=== PATIENT | male | born 1995 | race Caucasian/White ===

== ENCOUNTER 2021-03-29 10:06 | Emergency (ER) | payer SELFPAY ==
[2021-03-29 10:30] LABS: Urine Blood Negative (Negative); Urine Glucose Negative (Negative); Urine Protein Negative (Negative); Urine Specific Gravity 1.025 (1.005-1.030)
[2021-03-29 10:47] LABS: Absolute Lymphocytes (CBC) 1.6 K/uL (0.7-4.9); Basophils % 0.6 % (0-1.3); Hematocrit 45.2 % (39.6-49.0); Lymphocytes % 15.4 % (15.3-44.8); RBC Red Blood Cell Count 5.44 M/uL (4.33-5.43)
[2021-03-29 11:00] LABS: Protime INR 1.01
[2021-03-29 11:23] LABS: Barbiturates NEGATIVE (NEGATIVE); Benzodiazepines NEGATIVE (NEGATIVE); Cocaine NEGATIVE (NEGATIVE); METHAMPHETAM NEGATIVE (NEGATIVE); Methadone NEGATIVE (NEGATIVE); Opiates NEGATIVE (NEGATIVE); Phencyclidine NEGATIVE (NEGATIVE); THC Cannibis POSITIVE (NEGATIVE)
[2021-03-29 11:23] LABS: ALT/SGPT 44 U/L (12-78); AST/SGOT 20 U/L (15-37); Albumin 4.3 g/dL (3.4-5.0); Alkaline Phosphatase 57 U/L (45-117); BUN Blood Urea Nitrogen 17 mg/dL (7-18); Bicarbonate 25 mmol/L (21-32); Bilirubin Direct 0.3 mg/dL (0-0.2); Bilirubin Total 0.9 mg/dL (0.2-1.0); Glucose Level 114 mg/dL (74-106); Protein, Total 7.7 g/dL (6.4-8.2); Sodium Level 139 mmol/L (136-145)
--- NOTE | 2021-03-29 15:51 | ER ---
Nurse's Notes [facility] Name: Nik Miller Age: 26 yrs Sex: Male : 1995 Arrival Date: 03/29/2021 Time: 10:06 Bed 16 Private MD: Diagnosis: Suicidal ideations;Suicide attempt-Overdose Presentation: 03/29 10:19 Chief complaint: Patient states: "I took 2 handfuls of pills between the Tramadol and a jd3 Benzo today as an attempt to kill myself. I was going to go to the beach and hopefully just fall asleep, but I saw a picture of my kids and I decided to come here instead.". Coronavirus screen: At this time, the client does not indicate any symptoms associated with coronavirus-19. Ebola Screen: Patient negative for fever greater than or equal to 101.5 degrees Fahrenheit, and additional compatible Ebola Virus Disease symptoms. Initial Sepsis Screen: Does the patient meet any 2 criteria? No. Patient's initial sepsis screen is negative. Does the patient have a suspected source of infection? No. Patient's initial sepsis screen is negative. Risk Assessment: Do you want to hurt yourself or someone else? Patient reports desire/thoughts of hurting themselves or someone else. Provider notified. Onset of symptoms was March 29, 2021. 10:19 Method Of Arrival: Ambulatory jd3 10:19 Acuity: ANDREINA 2 jd3 10:25 Note poison control called/ recommendation: observation for 6 hours post ingestion, tox jd3 work up, EKG, and supportive care as needed. watch for respiratory depression and protect airway as needed. case # [id number]. Historical: - Allergies: 10:23 No Known Allergies; jd3 - Home Meds: 10:23 Lamictal Oral [Active]; jd3 - PMHx: 10:23 Bipolar disorder; jd3 - PSHx: 10:23 None; jd3 - Immunization history:: Adult Immunizations up to date. - Social history:: Smoking status: Patient reports the use of cigarette tobacco products, denies chronic smoking, but will smoke occasionally, Reported history of juuling and/or vaping. Patient uses alcohol, occasionally. street drugs, marijuana. - Family history:: not pertinent. - Hospitalizations: : No recent hospitalization is reported. Screenin:15 Abuse screen: Denies threats or abuse. Denies injuries from another. Nutritional jl7 screening: No deficits noted. Tuberculosis screening: No symptoms or risk factors identified. Fall Risk IV access (20 points). Total Ryan Fall Scale indicates No Risk (0-24 pts). Assessment: 10:15 Reassessment: Isa Metzger, pt's gerardoance, . jl7 10:15 General: Appears in no apparent distress. uncomfortable, Behavior is cooperative, jl7 crying. Pain: Denies pain. Neuro: Level of Consciousness is awake, alert, obeys commands, Oriented to person, place, time, situation. Cardiovascular: Patient's skin is warm and dry. Respiratory: Airway is patent Respiratory effort is even, unlabored, Respiratory pattern is regular, symmetrical. GI: No signs and/or symptoms were reported involving the gastrointestinal system. Derm: Skin is pink, warm \\T\\ dry. 11:30 Reassessment: Pt;lissa sierra at bedside. jl7 12:30 Reassessment: Patient appears in no apparent distress at this time. No changes from jl7 previously documented assessment. Patient and/or family updated on plan of care and expected duration. Pain level reassessed. Patient is alert, oriented x 3, equal unlabored respirations, skin warm/dry/pink. 13:30 Reassessment: Patient appears in no apparent distress at this time. No changes from jl7 previously documented assessment. Patient and/or family updated on plan of care and expected duration. Pain level reassessed. Patient is alert, oriented x 3, equal unlabored respirations, skin warm/dry/pink. 14:30 Reassessment: Patient appears in no apparent distress at this time. No changes from jl7 previously documented assessment. Patient and/or family updated on plan of care and expected duration. Pain level reassessed. Patient is alert, oriented x 3, equal unlabored respirations, skin warm/dry/pink. 15:54 Reassessment: [facility] at bedside assessing pt. jl7 18:30 Reassessment: Patient appears in no apparent distress at this time. No changes from jl7 previously documented assessment. Patient and/or family updated on plan of care and expected duration. Pain level reassessed. Patient is alert, oriented x 3, equal unlabored respirations, skin warm/dry/pink. 19:30 General: Appears in no apparent distress. comfortable, Behavior is calm, awaiting for rr5 mental facility placement. 19:30 Neuro: Level of Consciousness is awake, alert, obeys commands, Oriented to person, rr5 place, time. Cardiovascular: Capillary refill < 3 seconds Patient's skin is warm and dry. Respiratory: Airway is patent Respiratory effort is even, unlabored, Respiratory pattern is regular, symmetrical. 22:30 Reassessment: Patient appears in no apparent distress at this time. No changes from rr5 previously documented assessment. 03/30 01:55 Reassessment: Patient appears in no apparent distress at this time. resting eyes closed rr5 breathing spontaneously with BIPAP machine. 04:52 Reassessment: Patient appears in no apparent distress at this time. Patient is alert, rr5 oriented x 3, equal unlabored respirations, skin warm/dry/pink. woke up voided freely vital signs taken and recorded. 04:59 Reassessment: Patient appears in no apparent distress at this time. Patient is alert, rr5 oriented x 3, equal unlabored respirations, skin warm/dry/pink. complaint of vomiting ED provider aware with order made and carriedout. 05:26 Reassessment: Patient appears in no apparent distress at this time. resting eyes closed rr5 breathing spontaneously at room air. 06:01 Reassessment: Spoke with rep at [facility] who reports that they do not have ss an appropriate bed available at this time and patient will remain on wait list for "[facility]" bed to become available. 07:00 Reassessment: Patient appears in no apparent distress at this time. No changes from jl7 previously documented assessment. Patient and/or family updated on plan of care and expected duration. Pain level reassessed. Patient is alert, oriented x 3, equal unlabored respirations, skin warm/dry/pink. 09:00 Reassessment: Patient appears in no apparent distress at this time. No changes from jl7 previously documented assessment. Patient and/or family updated on plan of care and expected duration. Pain level reassessed. Patient is alert, oriented x 3, equal unlabored respirations, skin warm/dry/pink. Diet tray ordered and provided to pt. 11:00 Reassessment: Patient appears in no apparent distress at this time. Patient and/or jl7 family updated on plan of care and expected duration. Pain level reassessed. Patient is alert, oriented x 3, equal unlabored respirations, skin warm/dry/pink. Pt reports nausea, medicated as ordered. 12:44 Reassessment: Pt reports he forgot to tell us that he takes Metoprolol Tartrate 50 mg jl7 daily, ERD notified, BP WNL. Pt also reports he's having a lot of diarrhea, ERD notified, see MAR for orders. 15:00 Reassessment: Patient appears in no apparent distress at this time. No changes from jl7 previously documented assessment. Patient and/or family updated on plan of care and expected duration. Pain level reassessed. Patient is alert, oriented x 3, equal unlabored respirations, skin warm/dry/pink. 17:00 Reassessment: Patient appears in no apparent distress at this time. No changes from jl7 previously documented assessment. Patient and/or family updated on plan of care and expected duration. Pain level reassessed. Patient is alert, oriented x 3, equal unlabored respirations, skin warm/dry/pink. 19:16 Reassessment: Patient appears in no apparent distress at this time. Pt resting ad5 comfortably in stretcher with S.O. at bedside. Pt reports improvement in s/s at this time, denies new or worsening c/o. Resp with ease, skin pwd. Sitter remains at bedside per protocol for SI. Bed low and locked, bedrails x 1, call light within reach. NAD noted at this time, will continue to monitor. Patient states feeling better. 19:34 General: Appears in no apparent distress. comfortable. Pain: Denies pain. Neuro: No ad5 deficits noted. Level of Consciousness is awake, alert, obeys commands, Oriented to person, place, time, situation, Appropriate for age. Cardiovascular: No deficits noted. Capillary refill < 3 seconds Patient's skin is warm and dry. Respiratory: No deficits noted. Airway is patent Respiratory effort is even, unlabored, Respiratory pattern is regular, symmetrical. GI: No deficits noted. No signs and/or symptoms were reported involving the gastrointestinal system. : No deficits noted. No signs and/or symptoms were reported regarding the genitourinary system. Derm: No deficits noted. No signs and/or symptoms reported regarding the dermatologic system. Musculoskeletal: No deficits noted. No signs and/or symptoms reported regarding the musculoskeletal system. 03/31 07:00 Reassessment: Patient appears in no apparent distress at this time. Patient and/or jd3 family updated on plan of care and expected duration. Pain level reassessed. Patient is alert, oriented x 3, equal unlabored respirations, skin warm/dry/pink. General: Appears in no apparent distress. comfortable, Behavior is calm, cooperative, appropriate for age. Pain: Denies pain. Neuro: Level of Consciousness is awake, alert, obeys commands, Oriented to person, place, time, situation. Cardiovascular: Denies chest pain, Capillary refill < 3 seconds Patient's skin is warm and dry. Respiratory: Airway is patent Respiratory effort is even, unlabored, Respiratory pattern is regular, symmetrical, Denies cough, shortness of breath. 08:00 Reassessment: Patient appears in no apparent distress at this time. Patient and/or jd3 family updated on plan of care and expected duration. Pain level reassessed. Patient is alert, oriented x 3, equal unlabored respirations, skin warm/dry/pink. 08:40 Reassessment: Patient and/or family updated on plan of care and expected duration. Pain tw2 level reassessed. Patient is alert, oriented x 3, equal unlabored respirations, skin warm/dry/pink. pt states "can i get something for my nerves, i feeling like im vibrating on the inside", provider notified, medicated as ordered. 10:00 Reassessment: Patient appears in no apparent distress at this time. Patient and/or jd3 family updated on plan of care and expected duration. Pain level reassessed. Patient is alert, oriented x 3, equal unlabored respirations, skin warm/dry/pink. 11:00 Reassessment: Patient appears in no apparent distress at this time. Patient and/or jd3 family updated on plan of care and expected duration. Pain level reassessed. Patient is alert, oriented x 3, equal unlabored respirations, skin warm/dry/pink. report given to Joao ALFONSO at [facility] in [place]. 11:26 Reassessment: provider at bedside letting pt know report was done, we are pending tw2 office bed placement and transport at this time, pt agreeable and thankful at this time, pts fiance at bedside at this time with lunch. 12:15 Reassessment: pt c/o "that anxious vibrating feeling again", provider notified. tw2 medicated as ordered. 12:26 Reassessment: Patient appears in no apparent distress at this time. No changes from tw2 previously documented assessment. Patient and/or family updated on plan of care and expected duration. Pain level reassessed. Patient is alert, oriented x 3, equal unlabored respirations, skin warm/dry/pink. Overdose: 03/29 10:05 [place] Suicide Severity Screening: "In the past month, have you wished you were jl7 or wished you could go to sleep and not wake up?" Patient responds "yes." Based off client's responses, additional C-SSRS screening questions required. "In the past month, have you actually had any thoughts of killing yourself?" Patient responds "yes." Based off client's responses, additional C-SSRS screening questions required. "In your lifetime, have you ever done anything, started to do anything, or prepared to do anything to end your life?" Patient responds "yes." Patient reports suicidal intent within 3 past months. Patient took 2 handfuls of Tramadol and 2 handfuls of a benzodiazepine. Overdose occurred 1-2 hours ago. Vital Signs: 10:23 BP 148 / 96; Pulse 67; Resp 17 S; Temp 98.9(TE); Pulse Ox 99% on R/A; Weight 117.93 kg jd3 (R); Height 6 ft. 0 in. (182.88 cm) (R); Pain 0/10; 11:13 BP 135 / 86; Pulse 63; Resp 15; Pulse Ox 95% ; jl7 16:04 BP 122 / 88; Pulse 65; Resp 15; Pulse Ox 96% ; jl7 03/30 04:52 BP 138 / 84; Pulse 68; Resp 16; Temp 97.4; Pulse Ox 100% ; rr5 20:00 BP 128 / 69; Pulse 65; Resp 18; Temp 97.8; Pulse Ox 98% ; fm2 06 00:00 BP 128 / 58; Pulse 63; Resp 18; Temp 97.4; Pulse Ox 99% ; fm2 04:00 BP 122 / 63; Pulse 74; Resp 18; Temp 97.6; Pulse Ox 99% ; fm2 08:21 BP 146 / 94; Pulse 80; Resp 17; Temp 97.6; Pulse Ox 96% ; tf1 03/29 10:23 Body Mass Index 35.26 (117.93 kg, 182.88 cm) jd3 ED Course: 03/29 10:06 Patient arrived in ED. as 10:09 Jarrell Hernandez MD is Attending Physician. rn 10:09 Krystyna Chao RN is Primary Nurse. jl7 10:15 Patient has correct armband on for positive identification. Placed in gown. Bed in low jl7 position. Call light in reach. Side rails up X 1. senior materials planner on. Pulse ox on. NIBP on. 10:22 Triage completed. jd3 10:24 Arm band placed on. jd3 10:30 Initial lab(s) drawn, by sc, sent to lab. Urine collected: clean catch specimen, clear. jl7 Inserted saline lock: 20 gauge in right antecubital area, using aseptic technique. Blood collected. 10:39 EKG done, by ED staff, reviewed by Jarrell Hernandez MD. sv 11:21 CBC with Diff Sent. sv 11:21 Basic Metabolic Panel Sent. sv 11:21 Acetaminophen Sent. sv 14:53 contacted [facility] to have pt evaluated by screener. bd 19:13 Primary Nurse role handed off by Krystyna Chao RN mw2 22:21 [facility] called to see if the patient still was seeking placement. mw2 23:50 Romie Galindo RN is Primary Nurse. rr5 03/30 07:14 Attending Physician role handed off by Jarrell Hernandez MD davina 07:14 Maikol Hunt MD is Attending Physician. davina 07:41 initiated transfer to [facility]. faxed chart and exclusionary to [facility]. bd 07:47 Attending Physician role handed off by Maikol Hunt MD rn 07:47 Jarrell Hernandez MD is Attending Physician. rn 07:50 Primary Nurse role handed off by Romie Galindo RN bd 07:56 Krystyna Chao RN is Primary Nurse. jl7 09:12 pt denied at [facility] due to pts not being discharged, per Rekha. bd 09:17 spoke with Cameron at [facility], pt is on waiting list. bd 19:35 No apparent distress. Resting quietly. Safety Checks: Personal items have been removed. ad5 The door is open or patient has been placed in a hallway bed/chair. Sitter present at this time. 03/31 08:31 spoke with Regina at [facility], pt is still on wait list. bd 09:43 re initiated transfer to [facility], refaxed chart to [facility], spoke with Rekha, she bd stated they do have a bed. 10:12 Primary Nurse role handed off by Krystyna Chao RN tw2 10:12 Aye Givens RN is Primary Nurse. tw2 11:36 pt accepted in transfer to [facility] by dr Joshi, admin approval given by Vasu gonzales. 12:25 No provider procedures requiring assistance completed. IV discontinued, intact, tw2 bleeding controlled, No redness/swelling at site. Pressure dressing applied. Administered Medications: 03/30 04:59 Drug: Zofran (Ondansetron) 4 mg Route: IVP; Site: right antecubital; rr5 06:00 Follow up: Response: No adverse reaction rr5 11:00 Drug: Zofran (Ondansetron) 4 mg Route: IVP; Site: right antecubital; jl7 11:30 Follow up: Response: No adverse reaction; Nausea is decreased jl7 12:48 Drug: LoMOTIL (diphenoxylate-atropine) 2 tabs Route: PO; jl7 13:38 Follow up: Response: No adverse reaction jl7 03/31 08:40 Drug: Valium (diazepam) 2 mg Route: PO; tw2 11:28 Follow up: Response: No adverse reaction; Anxiety decreased tw2 12:18 Drug: Valium (diazepam) 2 mg Route: PO; tw2 12:26 Follow up: Response: No adverse reaction tw2 Intake: 03/30 06:55 voided freely rr5 Output: 06:55 Stool: 1; Total: 0ml. rr5 06:55 Other: 2; Total: 0ml. rr5 06:55 voided freely rr5 Outcome: 03/29 15:51 ER care complete, transfer ordered by MD. alfonso 03/31 12:25 Transferred by ground EMS Note: [facility] tw2 Condition: stable Instructed on the need for transfer. 12:27 Patient left the ED. tw2 Signatures: Dirrim, Zara bd Rosalba, Caro, RN RN Maikol Jenkins MD MD cha Martinez, Amelia as Nieto, Roman, MD MD rn Smirch, Shelby, RN RN ss Aye Givens RN RN tw2 Krystyna Chao RN RN jl7 Miguel Angel Noble RN RN jd3 Lisseth Murillo 2 Colleen Gallego 2 Romie Galindo RN RN rr5 Hussein Wyatt RN RN tf1 Lucio Oneil [facility]: (The following items were deleted from the chart) 11:29 09:00 Reassessment: Patient appears in no apparent distress at this time. Patient tw2 and/or family updated on plan of care and expected duration. Pain level reassessed. Patient is alert, oriented x 3, equal unlabored respirations, skin warm/dry/pink. jd3 12:27 12:20 Reassessment: pt c/o "that anxious vibrating feeling again", provider notified. tw2 medicated as ordered. tw2
--- NOTE | 2021-03-29 15:51 | EDPHYS ---
Physician Documentation [facility] Name: Nik Miller Age: 26 yrs Sex: Male : 1995 Arrival Date: 03/29/2021 Time: 10:06 Bed 16 Private MD: ED Physician Jarrell Hernandez HPI: 03/29 10:24 This 26 yrs old Male presents to ER via Ambulatory with complaints of rn Overdose, Suicidal Ideation. 10:24 The patient presents to the emergency department after a known overdose, that was rn intentional. Context: Method: the patient has a confirmed or suspected ingestion, Time: at 08:30, the OD/poisoning occurred at at a parking lot, and was witnessed no one, Previous OD/poisoning history: none. Associated signs and symptoms: Pertinent positives: anxiety, tearfulness, Pertinent negatives: auditory hallucinations, decreased level of consciousness, visual hallucinations. Severity of symptoms: At their worst the symptoms were moderate in the emergency department the symptoms are unchanged. The patient has experienced similar episodes in the past. The patient has not recently seen a physician. Reports overdosed on tramadol and "benzo", took 1.5 hours [employer], unknown amount of each, but felt more tramadol in mixture than benzos. Took "2 handfuls". Reports has daily thoughts of harming himself, but this is 1st time he has acted on this. . Historical: - Allergies: 10:23 No Known Allergies; jd3 - Home Meds: 10:23 Lamictal Oral [Active]; jd3 - PMHx: 10:23 Bipolar disorder; jd3 - PSHx: 10:23 None; jd3 - Immunization history:: Adult Immunizations up to date. - Social history:: Smoking status: Patient reports the use of cigarette tobacco products, denies chronic smoking, but will smoke occasionally, Reported history of juuling and/or vaping. Patient uses alcohol, occasionally. street drugs, marijuana. - Family history:: not pertinent. - Hospitalizations: : No recent hospitalization is reported. ROS: 10:24 Constitutional: Negative for fever, chills, and weight loss, Eyes: Negative for injury, rn pain, redness, and discharge, Neck: Negative for injury, pain, and swelling, Cardiovascular: Negative for chest pain, palpitations, and edema, Respiratory: Negative for shortness of breath, cough, wheezing, and pleuritic chest pain, Abdomen/GI: Negative for abdominal pain, nausea, vomiting, diarrhea, and constipation, Back: Negative for injury and pain, : Negative for injury, bleeding, discharge, and swelling, MS/Extremity: Negative for injury and deformity, Skin: Negative for injury, rash, and discoloration, Neuro: Negative for headache, weakness, numbness, tingling, and seizure, Psych: Negative for homicidal ideation, and hallucinations Exam: 10:24 Constitutional: This is a well developed, well nourished patient who is awake, alert, rn tearful Head/Face: Normocephalic, atraumatic. Eyes: Pupils equal round and reactive to light, extra-ocular motions intact. Lids and lashes normal. Conjunctiva and sclera are non-icteric and not injected. Cornea within normal limits. Periorbital areas with no swelling, redness, or edema. Cardiovascular: Regular rate and rhythm. No pulse deficits. Respiratory: No increased work of breathing, no retractions or nasal flaring. Abdomen/GI: Soft, non-tender Skin: Warm, dry MS/ Extremity: Pulses equal, no cyanosis. Neuro: Awake and alert, GCS 15 Vital Signs: 10:23 BP 148 / 96; Pulse 67; Resp 17 S; Temp 98.9(TE); Pulse Ox 99% on R/A; Weight 117.93 kg jd3 (R); Height 6 ft. 0 in. (182.88 cm) (R); Pain 0/10; 11:13 BP 135 / 86; Pulse 63; Resp 15; Pulse Ox 95% ; jl7 16:04 BP 122 / 88; Pulse 65; Resp 15; Pulse Ox 96% ; jl7 06/08 04:52 BP 138 / 84; Pulse 68; Resp 16; Temp 97.4; Pulse Ox 100% ; rr5 20:00 BP 128 / 69; Pulse 65; Resp 18; Temp 97.8; Pulse Ox 98% ; fm2 06 00:00 BP 128 / 58; Pulse 63; Resp 18; Temp 97.4; Pulse Ox 99% ; fm2 04:00 BP 122 / 63; Pulse 74; Resp 18; Temp 97.6; Pulse Ox 99% ; fm2 08:21 BP 146 / 94; Pulse 80; Resp 17; Temp 97.6; Pulse Ox 96% ; tf1 03/29 10:23 Body Mass Index 35.26 (117.93 kg, 182.88 cm) jd3 MDM: 03/29 10:09 Patient medically screened. rn 15:48 Differential diagnosis: over medication, suicidal ideation. Data reviewed: vital signs, rn nurses notes, lab test result(s), and as a result, I will admit patient. Counseling: I had a detailed discussion with the patient and/or guardian regarding: the historical points, exam findings, and any diagnostic results supporting the discharge/admit diagnosis, lab results, radiology results, the need to transfer to another facility, [facility] does not immediately have the required specialist. Response to treatment: There is no appreciated change of the patient's symptoms at this time. ED course: Pt medically cleared in terms of overdose, will need to be transferred for suicidal ideation and overdose attempt.. 03/30 08:28 ED course: Patient resting comfortably this AM, awaiting callback from [employer] for insurance attorney. Stable vitals. + nausea this AM, zofran ordered. . 19:50 ED course: NAD, VSS, no focal neurological deficits, cooperative. Patient wanted to [facility] discuss necessity of transfer to inpatient facility rather than going home. Explained the need to transfer to inpatient facility due to serious nature of his depression with suicide attempt without having received definitive care by a psychiatrist. Patient verbalized that he understood and will cooperate with treatment plan.. 03/31 06:49 ED course: Resting comfortably, NAD, VSS, cooperative. No acute issues overnight. mh7 Continues wait for psychiatric facility placement.. 07:10 ED course: Pt resting comfortably, stable vitals.. rn 11:20 ED course: Accepted for transport to [facility] by Dr. Mejia.. rn 03/29 10:15 Order name: Acetaminophen rn 03/29 10:15 Order name: Basic Metabolic Panel rn 03/29 10:15 Order name: CBC with Diff rn 03/29 10:15 Order name: ETOH Level; Complete Time: 13:48 rn 03/29 10:15 Order name: Hepatic Function; Complete Time: 13:48 rn 03/29 10:15 Order name: PT-INR; Complete Time: 13:48 rn 03/29 10:15 Order name: Ptt, Activated; Complete Time: 13:48 rn 03/29 10:15 Order name: Salicylate; Complete Time: 13:48 rn 03/29 10:15 Order name: Urine Drug Screen; Complete Time: 13:48 rn 03/29 10:15 Order name: Acetaminophen Level; Complete Time: 13:48 EDMS 03/29 10:16 Order name: Basic Metabolic Panel; Complete Time: 13:48 EDMS 03/29 10:16 Order name: CBC with Automated Diff; Complete Time: 13:48 EDMS 03/29 10:29 Order name: Urine Dipstick-Ancillary; Complete Time: 13:48 EDMS 03/29 10:42 Order name: Troponin (emerg Dept Use Only); Complete Time: 13:48 rn 03/29 10:15 Order name: Suicide Precautions; Complete Time: 10:37 rn 03/29 10:15 Order name: EKG; Complete Time: 10:16 rn 03/29 10:15 Order name: EKG - Nurse/Tech; Complete Time: 10:42 rn 03/29 12:18 Order name: Diet Finger Food; Complete Time: 12:18 [facility] 03/29 14:50 Order name: SARS-COV-2 RT PCR; Complete Time: 07:47 EDMS 03/29 17:14 Order name: Diet Regular; Complete Time: 17:14 em1 08 07:14 Order name: Diet Regular; Complete Time: 07:15 7 03/30 12:03 Order name: Diet Regular; Complete Time: 12:03 7 03/31 06:09 Order name: Diet Regular: Psych patient; Complete Time: 06:10 03/31 09:45 Order name: Diet Regular; Complete Time: 09:45 [facility] 03/29 10:15 Order name: IV Saline Lock; Complete Time: 10:37 rn 03/29 10:15 Order name: Labs collected and sent; Complete Time: 10:37 rn 03/29 10:15 Order name: Suicide Screening ([place]); Complete Time: 11:21 rn 03/29 10:15 Order name: Urine Dipstick-Ancillary (obtain specimen); Complete Time: 10:37 rn Administered Medications: 03/30 04:59 Drug: Zofran (Ondansetron) 4 mg Route: IVP; Site: right antecubital; rr5 06:00 Follow up: Response: No adverse reaction rr5 11:00 Drug: Zofran (Ondansetron) 4 mg Route: IVP; Site: right antecubital; jl7 11:30 Follow up: Response: No adverse reaction; Nausea is decreased jl7 12:48 Drug: LoMOTIL (diphenoxylate-atropine) 2 tabs Route: PO; jl7 13:38 Follow up: Response: No adverse reaction jl7 03/31 08:40 Drug: Valium (diazepam) 2 mg Route: PO; tw2 11:28 Follow up: Response: No adverse reaction; Anxiety decreased tw2 12:18 Drug: Valium (diazepam) 2 mg Route: PO; tw2 12:26 Follow up: Response: No adverse reaction tw2 Disposition: 03/29/21 15:51 Transfer ordered to Psych Facility. Diagnosis are Suicidal ideations, Suicide attempt - Overdose. - Reason for transfer: Higher level of care. - Accepting physician is . - Condition is Stable. - Problem is new. - Symptoms have improved. Signatures: Dispatcher [employer] [facility] Maikol Hunt MD MD cha Nieto, Roman, MD MD rn Wise, Tara RN RN tw2 Krystyna Chao RN RN jl7 Miguel Angel Noble RN RN jd3 Romie Galindo RN RN rr5 Joaquín Urrutia MD MD mh7 Corrections: (The following items were deleted from the chart) 03/29 13:45 10:52 CORONAVIRUS+MR.LAB.BRZ ordered. [facility] 03/31 12:27 03/29 15:51 03/29/2021 15:51 Transfer ordered to Psych Facility. Diagnosis is Suicidal tw2 ideations; Suicide attempt - Overdose. Reason for transfer: Higher level of care. Accepting physician is . Condition is Stable. Problem is new. Symptoms have improved. rn
[2021-03-30] MEDS ORDERED: ONDANSETRON 4 MG/2 ML VIAL ONE ×2 (05:16→08:18)
[2021-03-30] MEDS ORDERED: DIPHENOX/ATROP SULF 1 TAB PO ONE (13:08)
--- NOTE | 2021-03-31 07:31 | EKG ---
Test Date: 2021-03-29 Test Time: 10:39:50 Intraoperative Neuro Tech: SV MEASUREMENT RESULTS: Intervals: Rate: 63 TN: 178 QRSD: 100 QT: 364 QTc: 372 [place]: P: 44 TN: 178 QRS: 68 T: 45 INTERPRETIVE STATEMENTS: Normal sinus rhythm ST elevation, consider inferior injury or acute infarct ACUTE TX Abnormal ECG No previous ECG available for comparison Electronically Signed On 03-31-21 07:27:01 CDT by Raul Padron
[2021-03-31] MEDS ORDERED: DIAZEPAM 2 MG TABLET ONE ×2 (08:58→12:38)
[2021-03-31 12:46] VITALS: TEMP 97.6
[2021-03-31 12:47] VITALS: BP 146/94; O2SAT 96
== END 2021-03-31 12:27 ==
LOC: ER 10:06
DX: T40.422A Poisoning by tramadol, intentional self-harm, initial encounter (principal); T42.4X2A Poisoning by benzodiazepines, intentional self-harm, initial encounter; F31.9 Bipolar disorder, unspecified; F17.210 Nicotine dependence, cigarettes, uncomplicated; Z20.822 Contact with and (suspected) exposure to COVID-19
CPT/HCPCS: 36415; 80048; 80076; 80307; 80320; 80329; 81003; 84484; 85025; 85610; 85730; 93005; 96374; 99285; U0003